=== PATIENT | female | born 1930 | race Native Hawaiian/Other Pacific Islander ===

== ENCOUNTER 2017-01-18 09:07 | Emergency (ER) | payer OTHER ==
[~2017-01-18] VITALS: Ht 149.9 cm; Wt 44.5 kg
[~2017-01-18 09:07] MED LIST: AMLO1TAB34 PO; ATOR10TA84 PO; CA/D1TAB7 PO; LEVO5TAB13 PO; SITA25 PO
[2017-01-18 10:45] VITALS: BP 138/85
[2017-01-18] MEDS ORDERED: ACETAMINOPHEN 325 MG TABLET PO ONE (10:45)
== END 2017-01-18 11:01 | disposition home or self-care (01) ==
LOC: EMS 09:07
DX: S71.051A Open bite, right hip, initial encounter (principal); E11.9 Type 2 diabetes mellitus without complications; I10 Essential (primary) hypertension; E78.00 Pure hypercholesterolemia, unspecified; I25.10 Atherosclerotic heart disease of native coronary artery without angina pectoris; W54.0XXA Bitten by dog, initial encounter; Y93.89 Activity, other specified; Y92.89 Other specified places as the place of occurrence of the external cause; Y99.8 Other external cause status
CPT/HCPCS: 99282